=== PATIENT | female | born 1955 | race Caucasian/White ===

== ENCOUNTER 2020-02-03 08:44 | Day surgery (SDC) | payer MEDICARE, BC ==
[2020-02-01 11:04] LABS: BASOPHILS # (AUTO) 0.1 X10'3 (0-0.2); BASOPHILS % (AUTO) 0.8 % (0-1); EOSINOPHILS # (AUTO) 0.2 X10'3 (0-0.9); EOSINOPHILS % (AUTO) 1.9 % (0-6); HEMATOCRIT 45.6 % (35.0-45.0); HEMOGLOBIN 15.4 g/dl (12.0-16.0); LYMPHOCYTES % (AUTO) 18.1 % (21-51); MEAN CORPUSCULAR HEMOGLOBIN 31.9 PG (27.0-31.0); MEAN CORPUSCULAR HGB CONC 33.9 g/dL (33.0-36.5); MEAN CORPUSCULAR VOLUME 94.3 FL (78-98); MEAN PLATELET VOLUME 8.2 FL (7.4-10.4); MONOCYTES # (AUTO) 0.8 X10'3 (0-0.9); MONOCYTES % (AUTO) 7.2 % (2-12); NEUTROPHILS # (AUTO) 8.1 X10'3 (1.8-7.7); PLATELET COUNT 277 X10'3 (140-440); RED BLOOD COUNT 4.84 X10'6 (4.20-5.60); RED CELL DISTRIBUTION WIDTH 13.3 % (11.5-14.5); WHITE BLOOD COUNT 11.2 X10'3 (4.5-11.0)
[2020-02-01 11:18] LABS: PARTIAL THROMBOPLASTIN TIME 30 SECONDS (22-32)
[2020-02-01 11:25] LABS: ALANINE AMINOTRANSFERASE 12 U/L (12-78); ALBUMIN 3.5 G/DL (3.4-5.0); ALBUMIN/GLOBULIN RATIO 0.9 (1.1-1.5); ALKALINE PHOSPHATASE 115 IU/L (46-116); ANION GAP 11 (8-16); ASPARTATE AMINO TRANSFERASE 14 U/L (10-37); BILIRUBIN,TOTAL 0.4 MG/DL (0.1-1.0); BLOOD UREA NITROGEN 10 MG/DL (7-18); BUN/CREATININE RATIO 15.2 (6.6-38.0); CHLORIDE 105 MMOL/L (99-107); CREATININE 0.66 MG/DL (0.40-0.90); GLUCOSE 121 MG/DL (70-104); POTASSIUM 3.2 MMOL/L (3.5-5.1); SODIUM 140 MMOL/L (135-145); TOTAL CARBON DIOXIDE 24.5 MMOL/L (24-32); TOTAL PROTEIN 7.4 G/DL (6.4-8.2); eGFR 90 ML/MIN
[~2020-02-03] VITALS: Ht 152.4 cm; Wt 75.8 kg
[2020-02-03] VITALS (17 sets, daily range): BP systolic 112–169; BP diastolic 49–99
[2020-02-03] MEDS ORDERED: LORazepam 0.5 MG tablet PO PRN (09:00)
[2020-02-03] MEDS ORDERED: diphenhydrAMINE 25mg capsule PO PRN (09:00)
[2020-02-03] MEDS ORDERED: normal saline 1,000 ML IV SCH (09:00)
[2020-02-03] MEDS ORDERED: nitroGLYCERIN 0.4mg SUBLingual tab SL PRN (09:00)
[2020-02-03] MEDS ORDERED: CYAN10007 IM (09:06)
[2020-02-03] MEDS ORDERED: SAXA5TAB PO (09:06)
[2020-02-03] MEDS ORDERED: [UNRECOGNIZED DRUG - OTHER] PO (09:08)
[2020-02-03] MEDS ORDERED: IBUP-1984 PO (09:08)
[2020-02-03] MEDS ORDERED: midazolam 2 mg/2 ml injection ONE ×2 (09:49→10:27)
[2020-02-03] MEDS ORDERED: fentaNYL/PF 50MCG/1 ML 2ML syringe ONE (09:49)
[2020-02-03] MEDS ORDERED: heparin 1,000 UNITS/NS 500ml 500 ML ONE (09:49)
[2020-02-03] MEDS ORDERED: LIDOcaine 1% (10mg/ml)w/preservative injection 20ml MDV ONE (09:49)
[2020-02-03] MEDS ORDERED: iohexol 350 MG/ML 50ML vial IV ONE (09:49)
[2020-02-03] MEDS ORDERED: iohexol 350MG/ML 100ml bottle IV ONE (09:49)
[2020-02-03] MEDS: HYDROmorphone inj. 0.5 MG/0.5 ML DISP.SYRIN IV PRN ×2 (11:21→13:39)
[2020-02-03] MEDS: OXAZEpam 15mg capsule PO PRN ×2 (11:24→17:34)
[2020-02-03] MEDS ORDERED: HYDROcodone/acetaminophen 5mg/325mg tablet PO PRN (11:25)
[2020-02-03] MEDS ORDERED: ondansetron/PF 4mg/2ml inj IV PRN (11:25)
[2020-02-03] MEDS ORDERED: proCHLORperazine 10 MG/2 ml inj IV PRN (11:25)
[2020-02-03] MEDS: HYDROcodone/acetaminophen 10/325mg tab PO PRN ×2 (12:29→17:34)
== END 2020-02-03 17:55 | disposition home or self-care (01) ==
LOC: SSTAY O 08:44
PROVIDERS: ATTEND Internal Medicine Cardiovascular Disease
DX: R94.30 Abnormal result of cardiovascular function study, unspecified (principal); I25.10 Atherosclerotic heart disease of native coronary artery without angina pectoris; E03.9 Hypothyroidism, unspecified; Z90.49 Acquired absence of other specified parts of digestive tract; Z98.890 Other specified postprocedural states; E78.5 Hyperlipidemia, unspecified; J44.9 Chronic obstructive pulmonary disease, unspecified; Z87.891 Personal history of nicotine dependence
CPT/HCPCS: 36415; 71046; 80053; 82948; 85025; 85610; 85730; 93458; 99152; C1760; C1769; J1170; J1644; J2001; J2250; J3010; J7030; Q0163; Q9967; A4620; A6258

== ENCOUNTER 2020-02-17 12:08 | Day surgery (SDC) | payer MEDICARE, BC ==
[2020-02-17] VITALS (11 sets, daily range): BP systolic 121–170; BP diastolic 55–99
[~2020-02-17] VITALS: Ht 152.4 cm; Wt 74.0 kg
[~2020-02-17 12:08] MED LIST: CYAN10007 IM; IBUP-1984 PO; SAXA5TAB PO; [UNRECOGNIZED DRUG - OTHER] PO
[2020-02-17] MEDS ORDERED: MESSAGE TO PHARMACY PO ONE (12:35)
[2020-02-17] MEDS ORDERED: aspirin 325mg tablet PO ONE (12:35)
[2020-02-17] MEDS ORDERED: LORazepam 0.5 MG tablet PO PRN (12:35)
[2020-02-17] MEDS ORDERED: dextrose ORAL solution 15 GM/59 ML bottle PO PRN ×2 (12:35)
[2020-02-17] MEDS ORDERED: nitroGLYCERIN 0.4mg SUBLingual tab SL PRN ×2 (12:35→15:30)
[2020-02-17] MEDS ORDERED: clopidogrel 75mg tablet PO ONE (12:35)
[2020-02-17] MEDS ORDERED: normal saline 1,000 ML IV SCH (12:35)
[2020-02-17] MEDS ORDERED: insulin Lispro (HumaLOG) vial - multi-dose SQ SCH (12:35)
[2020-02-17] MEDS ORDERED: diphenhydrAMINE 25mg capsule PO PRN (12:35)
[2020-02-17] MEDS ORDERED: glucagon, human recombinant 1mg kit SUBCUT PRN (12:35)
[2020-02-17] MEDS ORDERED: dextrose 50%-water 50ml dispensing syringe IV PRN ×2 (12:35)
[2020-02-17] MEDS ORDERED: clopidogrel 300mg tablet PO ONE (13:00)
[2020-02-17] MEDS ORDERED: CHOL500061 PO (13:24)
[2020-02-17] MEDS ORDERED: CLOP75TA15 PO (13:24)
[2020-02-17 13:39] LABS: TROPONIN I < 0.04 NG/ML (0.0-0.05)
[2020-02-17] MEDS ORDERED: LIDOcaine 1% (10mg/ml)w/preservative injection 20ml MDV ONE (13:46)
[2020-02-17] MEDS ORDERED: heparin 1,000unit/ml 10ml vial 10 ML ONE (13:47)
[2020-02-17] MEDS ORDERED: iohexol 350 MG/1 ML 200ml bottle ONE (13:47)
[2020-02-17] MEDS ORDERED: tirofiban 5mg in NS 100mL 100 ML IV ONE (13:47)
[2020-02-17] MEDS ORDERED: nitroGLYCERIN-Tridil 50MG/D5W 250 ML IV ONE (13:48)
[2020-02-17] MEDS ORDERED: midazolam 2 mg/2 ml injection ONE (13:48)
[2020-02-17] MEDS ORDERED: fentaNYL/PF 50MCG/1 ML 2ML syringe ONE (13:48)
[2020-02-17] MEDS ORDERED: proCHLORperazine 10 MG/2 ml inj ONE (14:18)
[2020-02-17] MEDS ORDERED: HYDROmorphone 1 mg/ml syringe ONE (14:53)
[2020-02-17] MEDS ORDERED: OXAZEpam 15mg capsule PO PRN (15:30)
[2020-02-17] MEDS ORDERED: HYDROcodone/acetaminophen 5mg/325mg tablet PO PRN (15:30)
[2020-02-17] MEDS ORDERED: ondansetron/PF 4mg/2ml inj IV PRN (15:30)
[2020-02-17] MEDS ORDERED: normal saline 1000ml 1,000 ML IV SCH (15:30)
[2020-02-17] MEDS ORDERED: proCHLORperazine 10 MG/2 ml inj IV PRN (15:30)
[2020-02-17] MEDS: HYDROcodone/acetaminophen 10/325mg tab PO PRN ×2 (16:30→20:12)
[2020-02-17] MEDS ORDERED: insulin glargine (Lantus) pen - multi-dose SQ SCH (21:00)
== END 2020-02-17 20:40 | disposition home or self-care (01) ==
LOC: SSTAY O 12:08
PROVIDERS: ATTEND Internal Medicine Cardiovascular Disease
DX: R94.39 Abnormal result of other cardiovascular function study (principal); C34.32 Malignant neoplasm of lower lobe, left bronchus or lung; J44.9 Chronic obstructive pulmonary disease, unspecified; E03.9 Hypothyroidism, unspecified; F17.210 Nicotine dependence, cigarettes, uncomplicated; E78.5 Hyperlipidemia, unspecified; E11.9 Type 2 diabetes mellitus without complications; Z79.899 Other long term (current) drug therapy; Z79.01 Long term (current) use of anticoagulants; Z79.82 Long term (current) use of aspirin; R06.02 Shortness of breath
CPT/HCPCS: 36415; 82948; 83880; 84484; 93005; 99152; 99153; C1769; C1874; C9600; J0780; J1170; J1644; J1815; J2001; J2250; J3010; J3246; J7030; Q0163; Q9967; A4620; A6258; C1751; C1760; J3490